=== PATIENT | male | born 1995 | race Caucasian/White ===

== ENCOUNTER 2017-06-21 | Emergency (ER) | payer OTHER ==
--- NOTE | 2017-06-21 22:48 | EDPHYS ---
Physician Documentation [facility] Name: Lawrence Parsons Age: 21 yrs Sex: Male : 1995 Arrival Date: 06/21/2017 Time: 21:51 Bed 27 Private MD: ED Physician Florin Matos HPI: 06/21 22:45 This 21 yrs old Male presents to ER via EMS with complaints of Anxiety. gs 22:45 The patient or guardian reports cough, that is intermittent. Onset: The gs symptoms/episode began/occurred 1 week(s) ago. Modifying factors: The symptoms are alleviated by nothing. the symptoms are aggravated by nothing. Associated signs and symptoms: Pertinent positives: nausea, Pertinent negatives: chest pain. Severity of symptoms: At their worst the symptoms were mild in the emergency department the symptoms are unchanged. The patient has experienced similar episodes in the past, a few times. Historical: - Allergies: 22:04 No Known Allergies; kb1 - Home Meds: 22:04 Seroquel Oral [Active]; Zoloft Oral [Active]; kb1 - PMHx: 22:04 Depression; Anxiety; kb1 - Immunization history:: Flu vaccine is not up to date. - Social history:: Smoking status: Patient uses tobacco products, denies chronic smoking, but will smoke occasionally. ROS: 22:45 All other systems are negative. gs Exam: 22:45 Head/Face: Normocephalic, atraumatic. Eyes: Pupils equal round and reactive to light, gs extra-ocular motions intact. Lids and lashes normal. Conjunctiva and sclera are non-icteric and not injected. Cornea within normal limits. Periorbital areas with no swelling, redness, or edema. Neck: Trachea midline, no thyromegaly or masses palpated, and no cervical lymphadenopathy. Supple, full range of motion without nuchal rigidity, or vertebral point tenderness. No Meningismus. Chest/axilla: Normal chest wall appearance and motion. Nontender with no deformity. No lesions are appreciated. Cardiovascular: Regular rate and rhythm with a normal S1 and S2. No gallops, murmurs, or rubs. Normal PMI, no JVD. No pulse deficits. Respiratory: Lungs have equal breath sounds bilaterally, clear to auscultation and percussion. No rales, rhonchi or wheezes noted. No increased work of breathing, no retractions or nasal flaring. Abdomen/GI: Soft, non-tender, with normal bowel sounds. No distension or tympany. No guarding or rebound. No evidence of tenderness throughout. Back: No spinal tenderness. No costovertebral tenderness. Full range of motion. Skin: Warm, dry with normal turgor. Normal color with no rashes, no lesions, and no evidence of cellulitis. MS/ Extremity: Pulses equal, no cyanosis. Neurovascular intact. Full, normal range of motion. Neuro: Awake and alert, GCS 15, oriented to person, place, time, and situation. Cranial nerves II-XII grossly intact. Motor strength 5/5 in all extremities. Sensory grossly intact. Cerebellar exam normal. Normal gait. 22:45 Constitutional: The patient appears alert, awake. 22:45 ENT: Posterior pharynx: erythema, that is mild. 22:45 Respiratory: Breath sounds: are clear throughout, stridor, is not appreciated. 22:48 Psych: Behavior/mood is anxious, says anxious because in custody. Patient has no thoughts/intents to harm self or others. Vital Signs: 22:04 BP 122 / 77; Pulse 105; Resp 18; Temp 98.4; Pulse Ox 98% ; Weight 72.57 kg; Height 5 kb1 ft. 8 in. (172.72 cm); Pain 5/10; 22:04 Body Mass Index 24.33 (72.57 kg, 172.72 cm) kb1 MDM: 22:44 Patient medically screened. 22:45 Data reviewed: vital signs, nurses notes. ED course: brought in by police for dui, was able to consume etoh without any emesis. will discharge stable. Administered Medications: No medications were administered Disposition: 06/21/17 22:47 Discharged to Home. Impression: Acute upper respiratory infection, unspecified. - Condition is Stable. - Discharge Instructions: Upper Respiratory Infection, Adult. - Medication Reconciliation Form, Thank You Letter, Antibiotic Education, Prescription Opioid Use form. - Follow up: Emergency Department; When: 2 - 3 days; Reason: Re-evaluation by your physician. Signatures: Florin Matos MD MD gs Brown, Kristina RN RN kb1
--- NOTE | 2017-06-21 22:48 | ER ---
Nurse's Notes [facility] Name: Lawrence Parsons Age: 21 yrs Sex: Male : 1995 Arrival Date: 06/21/2017 Time: 21:51 Bed 27 Private MD: Diagnosis: Acute upper respiratory infection, unspecified Presentation: 06/21 21:58 Presenting complaint: Patient states: complains of headache, hot/cold flashes, nausea kb1 for the past 4 days. States that today he has actually been able to drink some water. Transition of care: Prison. Onset of symptoms was June 17, 2017. Care prior to arrival: None. 21:58 Method Of Arrival: EMS kb1 21:58 Acuity: SANJUANA 4 kb1 Triage Assessment: 22:04 General: Appears in no apparent distress. Behavior is calm. Pain: Complains of pain in kb1 "headache". Neuro: Level of Consciousness is awake, alert, obeys commands, Oriented to person, place, time, situation. Cardiovascular: Patient's skin is warm and dry. Respiratory: Respiratory effort is even, unlabored, Respiratory pattern is regular, symmetrical. GI: Reports nausea. : No signs and/or symptoms were reported regarding the genitourinary system. Historical: - Allergies: 22:04 No Known Allergies; kb1 - Home Meds: 22:04 Seroquel Oral [Active]; Zoloft Oral [Active]; kb1 - PMHx: 22:04 Depression; Anxiety; kb1 - Immunization history:: Flu vaccine is not up to date. - Social history:: Smoking status: Patient uses tobacco products, denies chronic smoking, but will smoke occasionally. Screenin:06 Abuse screen: Denies threats or abuse. Nutritional screening: No deficits noted. kb1 Tuberculosis screening: No symptoms or risk factors identified. Fall Risk None identified. Assessment: 22:06 Reassessment: No changes from previously documented assessment. per officer Pt also kb needs a legal blood draw. Vital Signs: 22:04 BP 122 / 77; Pulse 105; Resp 18; Temp 98.4; Pulse Ox 98% ; Weight 72.57 kg; Height 5 kb1 ft. 8 in. (172.72 cm); Pain 5/10; 22:04 Body Mass Index 24.33 (72.57 kg, 172.72 cm) [facility] ED Course: 21:51 Patient arrived in ED. bb 21:53 Lyla Damon, RN is Primary Nurse. kb1 22:02 Florin Matos MD is Attending Physician. 22:03 Triage completed. kb1 22:04 Arm band placed on. kb1 22:06 Patient has correct armband on for positive identification. Bed in low position. Call kb1 light in reach. 22:06 No provider procedures requiring assistance completed. Patient did not have IV access kb1 during this emergency room visit. Administered Medications: No medications were administered Outcome: 22:47 Discharge ordered by . 22:52 Discharged to Law Enforcement kb1 22:52 Condition: stable 22:52 Discharge instructions given to patient, police, Instructed on discharge instructions, follow up and referral plans. Demonstrated understanding of instructions, follow-up care. 22:53 Patient left the ED. kb1 Signatures: Belinda Gutierrez RN RN Florin Matos MD MD Lyla Damon RN RN kb
== END 2017-06-21 22:53 | disposition home or self-care (01) ==
CPT/HCPCS: 99283

== ENCOUNTER → 2023-06-15 | Emergency (ER) | payer SELFPAY ==
[~2023-06-15] MED LIST: ACETAMINOPHEN 500 MG TAB ONE; NA CHLORIDE 0.9% 1,000 ML ONE; WATER FOR INJ,STERILE 10 ML ONE; ZIPRASIDONE MESYLA 20 MG/VIAL IM ONE
[2023-06-15 03:21] LABS: Barbiturates NEGATIVE (NEGATIVE); Benzodiazepines NEGATIVE (NEGATIVE); Cocaine NEGATIVE (NEGATIVE); METHAMPHETAM NEGATIVE (NEGATIVE); Methadone NEGATIVE (NEGATIVE); Opiates NEGATIVE (NEGATIVE); Phencyclidine NEGATIVE (NEGATIVE); THC Cannibis POSITIVE (NEGATIVE)
[2023-06-15 03:31] LABS: Absolute Basophils 0.2 K/uL (0-0.5); Absolute Lymphocytes (CBC) 1.9 K/uL (0.7-4.9); Absolute Monocytes 0.7 K/uL (0.1-1.3); Absolute Neutrophil 11.4 K/uL (1.8-8.0); Basophils % 1.3 % (0-1.3); Eosinophils % 0.2 % (0-4.4); Hematocrit 45.7 % (39.6-49.0); Lymphocytes % 13.4 % (15.3-44.8); MCH 30.7 pg (27.0-35.0); MCHC 35.1 g/dL (32.0-36.0); MCV 87.4 fL (80-100); MPV 7.1 fL (7.6-11.3); Monocytes % 4.8 % (3.3-12.3); Neutrophils % 80.3 % (41.7-73.7); Nucleated Red Blood Cells % 0.1 % (0-0); Platelets 466 thou/uL (152-406); RBC Red Blood Cell Count 5.23 M/uL (4.33-5.43); Red Cell Distribution Width 12.4 % (12.1-15.2)
[2023-06-15 03:39] LABS: PTT, Activated Partial Thromb 31.6 SECONDS (24.3-36.9); Protime INR 1.19
[2023-06-15 03:57] LABS: ALT/SGPT 33 U/L (16-61); AST/SGOT 25 U/L (15-37); Albumin/Globulin Ratio 0.9 (1.1-1.8); Alkaline Phosphatase 92 U/L (45-117); Anion Gap 14.6 mEq/L (5.0-15.0); BUN Blood Urea Nitrogen 11 mg/dL (7-18); Bicarbonate 21 mEq/L (21-32); Bilirubin Total 0.2 mg/dL (0.2-1.0); Globulin 4.6 g/dL (2.3-3.5); Glomerular Filtration Rate 78 ml/min (=/>90); Glucose Level 115 mg/dL (74-106); Potassium 3.6 mEq/L (3.5-5.1); Protein, Total 8.6 g/dL (6.4-8.2); Sodium Level 142 mEq/L (136-145)
[2023-06-15 04:01] LABS: Bilirubin Direct < 0.1 mg/dL (0-0.2); Bilirubin Indirect, Calculated ND mg/dL (0.2-0.8)
--- NOTE | 2023-06-15 12:04 | ER ---
Nurse's Notes [facility] Name: Lawrence Parsons Age: 27 yrs Sex: Male : 1995 Arrival Date: 06/15/2023 Time: 02:11 Bed 5 Private MD: Diagnosis: Suicidal ideations;Alcohol abuse Presentation: 06/14 02:27 Chief complaint: EMS states: we were called out for SI by PD. PD states patient had a vc1 piece of glass and was threatening to kill him self. Patient denies SI to us. 02:27 Coronavirus screen: At this time, the client does not indicate any symptoms associated vc1 with coronavirus-19. Ebola Screen: Patient negative for fever greater than or equal to 101.5 degrees Fahrenheit, and additional compatible Ebola Virus Disease symptoms Patient denies exposure to infectious person. Patient denies travel to an Ebola-affected area in the 21 days before illness onset. No symptoms or risks identified at this time. Initial Sepsis Screen: Does the patient meet any 2 criteria? HR > 90 bpm. No. Patient's initial sepsis screen is negative. Does the patient have a suspected source of infection? No. Patient's initial sepsis screen is negative. Risk Assessment: Do you want to hurt yourself or someone else? Patient reports no desire to harm self or others. Onset of symptoms was June 15, 2023. Care prior to arrival: None. Activity prior to arrival: None. Mechanism of Injury: No Mechanism of Injury. Transition of care: patient was not received from another setting of care. 02:27 Method Of Arrival: EMS: [facility] vc1 02:27 Acuity: SANJUANA 2 vc1 10:30 Risk Assessment: Do you want to hurt yourself or someone else? Patient reports no nj1 desire to harm self or others. Triage Assessment: 02:27 General: Appears in no apparent distress. comfortable, Behavior is cooperative, crying, vc1 restless, Smells of alcohol, Denies fever, feeling ill, fatigue, chills. Pain: Denies pain. EENT: No deficits noted. No signs and/or symptoms were reported regarding the EENT system. Neuro: Level of Consciousness is awake, alert, obeys commands, Oriented to person, place, time, situation, Appropriate for age. Cardiovascular: No deficits noted. Heart tones S1 S2 Capillary refill < 3 seconds Patient's skin is warm and dry. Rhythm is sinus tachycardia. Respiratory: Airway is patent Respiratory effort is even, unlabored, Respiratory pattern is regular, symmetrical, Breath sounds are clear bilaterally. GI: No deficits noted. No signs and/or symptoms were reported involving the gastrointestinal system. Abdomen is flat, non-distended, Abd is soft and non tender X 4 quads. : No deficits noted. No signs and/or symptoms were reported regarding the genitourinary system. Derm: old scars to right wrist, healed. Scratches to left arm, chin, chest. Musculoskeletal: No deficits noted. No signs and/or symptoms reported regarding the musculoskeletal system. Historical: - Allergies: : No Known Allergies; vc1 - Home Meds: : Seroquel 300 mg oral tablet 1 tab nightly [Active]; Lexapro 30 mg Oral daily [Active]; vc1 - PMHx: : Anxiety; Depression; vc1 - PSHx: : None; vc1 - Immunization history:: Client reports having NOT received the Covid vaccine. Flu vaccine is not up to date. - Social history:: Smoking status: Patient denies any tobacco usage or history of. Patient uses street drugs, marijuana, The patient is unemployed. - Family history:: not pertinent. - Code Status:: Full code. - Coronavirus screen:: The patient has NOT traveled to [place] in the past 14 days. The patient has NOT had contact with known/suspected case of Coronavirus?. - Ebola Screening: : Patient negative for fever greater than or equal to 101.5 degrees Fahrenheit, and additional compatible Ebola Virus Disease symptoms Patient denies exposure to infectious person Patient denies travel to an Ebola-affected area in the 21 days before illness onset No symptoms or risks identified at this time. Screenin:27 [facility] ED Fall Risk Assessment (Adult) History of falling in the last 3 months, vc1 including since admission No falls in past 3 months (0 pts) Confusion or Disorientation No (0 pts) Intoxicated or Sedated Yes (3 pts) Impaired Gait No (0 pts) Mobility Assist Device Used No (0 pt) Altered Elimination No (0 pt) Score/Fall Risk Level 3 or more points = High Risk Oriented to surroundings, Maintained a safe environment, Educated pt \\T\\ family on fall prevention, incl call for assistance when getting out of bed, Hourly rounding (assess needs \\T\\ fall precautionary measures) done, Utilized family, sitter, or virtual corporate investigator as indicated. Abuse screen: Denies threats or abuse. Nutritional screening: No deficits noted. Tuberculosis screening: No symptoms or risk factors identified. Assessment: 02:30 Reassessment: See triage assessment. vc1 05:44 Reassessment: Patient asleep, sitter at bedside. vc1 08:39 Reassessment: No changes from previously documented assessment. Patient and/or family ll1 updated on plan of care and expected duration. Pain level reassessed. Patient is alert, oriented x 3, equal unlabored respirations, skin warm/dry/pink. 10:30 Reassessment: Patient appears in no apparent distress at this time. Patient and/or nj1 family updated on plan of care and expected duration. Pain level reassessed. Patient is alert, oriented x 3, equal unlabored respirations, skin warm/dry/pink. 12:30 Reassessment: Patient appears in no apparent distress at this time. Resting/sleeping. nj1 Sitter at bedside. 12:50 Reassessment: [facility] on the phone, states they do not have a bed nj1 at this time but they have accepted the patient to come in Sunday since he has an LOLI and a chip mixer has to sign paperwork, and being the weekend he still wouldn't be able to come but until Sunday. Charge nurse notified. 14:30 Reassessment: Patient appears in no apparent distress at this time. Resting/sleeping. nj1 Psych: 02:27 [place] Suicide Severity Screening: In the past month, have you wished you were vc1 or wished you could go to sleep and not wake up? Patient responds "No." "In the past month, have you actually had any thoughts of killing yourself?" Patient responds "no." "In your lifetime, have you ever done anything, started to do anything, or prepared to do anything to end your life?" Patient responds "yes." Patient reports suicidal intent occurred greater than 3 months prior. In 2014 pt states he got drunk and took some pills and woke up in the hospital with lacerations on wrist Pt states he spent one day at [facility] in January and was released to follow up out patient. 02:27 Subjective: Patient's mood is sad, Delusions are denied, Hallucinations are denied vc1 Having thoughts of pt states he sometimes doesn't want to get out of bed and has had thoughts of wanting to , but doesn't actually want to and would not kill himself. Pt states he lost his job and hasn't been able to afford his Lexapro and Seroquel, pt states mother told him yesterday she would pay for him to restart his prescriptions. Objective: Patient is cooperative, Speech is soft, Affect is appropriate. Interventions: Removed personal items and placed in bag. Searched person for dangerous items. Urine collected and sent for urine drug test. Safety Checks: Personal items have been removed. Door is open. No visitors are present at this time. sitter at bedside. Patient uses marijuana. Commitment: Patient will be an involuntary commitment. Commitment papers completed. Vital Signs: 03:44 BP 106 / 74; Pulse 103; Resp 18; Temp 98.8; Pulse Ox 100% on R/A; vk 03:44 Weight 71.21 kg; Height 5 ft. 8 in. ; vc1 06:59 BP 119 / 68; Pulse 109; Resp 17; Temp 99.1; Pulse Ox 98% on R/A; vk 08:24 BP 147 / 54 LA Supine (auto/reg); Pulse 122 MON; Resp 12 S; Temp 97.8(TE); Pulse Ox 97% jg11 on R/A; 09:17 Pulse 97; jg11 12:41 BP 118 / 71 LA Supine (auto/reg); Pulse 85 MON; Resp 15 S; Temp 98.7(TE); Pulse Ox 98% jg11 on R/A; 15:56 BP 122 / 80 LA Supine (auto/reg); Pulse 80 MON; Resp 12 S; Temp 98.7(TE); Pulse Ox 98% jg11 on R/A; 03:44 Body Mass Index 23.87 (71.21 kg, 172.72 cm) vc1 Orient Coma Score: 04:41 Eye Response: spontaneous(4). Motor Response: obeys commands(6). Verbal Response: sp4 oriented(5). Total: 15. ED Course: 02:11 Safety checks: Items removed: yes. Door open/sign placed on door: yes. Family/friend ty present: no. Sitter present: Yes. Patient has correct armband on for positive identification. Placed in gown. Bed in low position. Valuables See valuables checklist. Sitter at bedside. 02:11 Safety checks: Items removed: yes. Door open/sign placed on door: yes. Sitter present: vk Yes. 02:27 Patient arrived in ED. ty 02:27 Arm band placed on right wrist. vc1 02:29 Shravan Guy MD is Attending Physician. sp4 02:53 Urine Drug Screen Sent. jw7 02:54 Urine collected: clean catch specimen, clear. ty 02:58 Assisted to bathroom. ty 03:00 Provided Education on: Geodon use . vc1 03:43 Inserted saline lock: 22 gauge in right antecubital area, using aseptic technique. vk 03:43 Patient maintains SpO2 saturation greater than 95% on room air. vk 04:09 Warm blanket given. Diet: Patient given snack. Patient given juice. Tolerated well ty [place] sandwich, mixed fruit cup, Brittnee Holly given to patient. 04:27 Assisted to bathroom. vk 04:29 Triage completed. vc1 04:45 Melody Macias RN is Primary Nurse. vc1 04:50 Initial lab(s) drawn, by me, sent to lab. vk 05:06 Warm blanket given. vk 05:31 EKG done, by polysomnograph tech. vk 06:54 Dressings: Kerlix X 2; left wrist left thumb non-adherent dressing. Wound care: to ty laceration located on left wrist and abraasion to left thumb was cleaned with with Hydrogen Peroxide, debrided using Gauze and Hydrogen Peroxide dressed with Neosporin, Kerlix, Patient tolerated well. 07:00 Report received from door opener RN. ll1 07:04 Attending Physician role handed off by Shravan Guy MD ec2 07:04 Skip Jones MD is Attending Physician. ec2 09:30 on phone with patients family, will contact [facility] for evaluation. mc5 09:35 Contacted [facility] to request evaluation. mc5 09:42 Side rails up X 1. PO fluids given. j1 09:52 Maday with [facility] called to notify of 45 min ETA. mc5 10:50 Maday with [facility] arrived and is at bedside. [facility] 12:10 faxed patient chart to [facility], [facility], [facility], [facility], [address] in request of placement. 12:44 PO fluids given. jg11 13:11 Patient accepted to [facility] by Dr. Bowles, admin approval by [facility] Kerrystuart Mueller for Sunday, June 18, 2023. 14:06 Kerrystuart Mueller with [facility] called back stating that they have a bed available [facility] now and he can be transported. 15:35 requested transport from [facility]- 45 min ETA. [facility] 15:40 [facility] called to adjust ETA to 1-1.5 hr. [facility] 16:17 PO fluids given. jg11 16:30 No provider procedures requiring assistance completed. nj1 16:30 IV discontinued, intact, bleeding controlled. nj1 Administered Medications: 03:20 Drug: Geodon IM 40 mg IM once Route: IM; Site: left gluteus; vc1 03:30 Drug: NS 0.9% IV 1000 ml IV at 1 bolus Per protocol; 1000 mL bolus Route: IV; Rate: 1 vc1 bolus; Site: right antecubital; 08:38 Drug: NS 0.9% IV 1000 ml IV at 1 bolus Per protocol; 1000 mL bolus Route: IV; Rate: 1 ll1 bolus; Site: right antecubital; 10:00 Follow up: IV Status: Completed infusion; IV Intake: 1000ml nj1 10:20 Drug: Acetaminophen PO 1000 mg PO once Route: PO; nj1 11:00 Follow up: Response: No adverse reaction; Pain is decreased nj1 Medication: 04:41 VIS not applicable for this client. vc1 Intake: 10:00 IV: 1000ml; Total: 1000ml. nj1 Outcome: 12:03 ER care complete, transfer ordered by . ec2 16:30 Transferred by ground EMS to other acute care facility: [facility]. Transfer form nj1 completed. Note: Latrecia \\T\\ 1250 16:30 Condition: stable nj1 16:30 Instructed on the need for transfer, 16:30 Patient left the ED. nj1 Signatures: Timmy Cardoso RN RN ll1 Melody Macias RN RN vc1 Sierra Mcrae, RN RN jw7 Shravan Guy MD MD sp4 Aster Winter RN RN nj1 Viviana Arita 5 Skip Jones MD MD ec2 Cecilio Morillo jg11 Radha Archer Tylor ty Corrections: (The following items were deleted from the chart) 04:09 04:08 Safety checks: Items removed: yes. Door open/sign placed on door: yes. Sitter vk present: Yes. vk 05:33 05:25 Diet: vk vk 16:48 16:40 Patient left the ED. nj1 nj1
--- NOTE | 2023-06-15 12:04 | EDPHYS ---
Physician Documentation [facility] Name: Lawrence Parsons Age: 27 yrs Sex: Male : 1995 Arrival Date: 06/15/2023 Time: 02:11 Bed 5 Private MD: ED Physician Skip Jones HPI: 06/14 02:57 This 27 yrs old Male presents to ER via Unassigned with complaints of Suicidal sp4 Ideation. 04:41 27-year-old male presents with EMS for intoxication associated with suicidal statements sp4 and several scratches to the left wrist, . 04:43 Patient denies suicidal ideation. sp4 Historical: - Allergies: 02:27 No Known Allergies; vc1 - Home Meds: 02:27 Seroquel 300 mg oral tablet 1 tab nightly [Active]; Lexapro 30 mg Oral daily [Active]; vc1 - PMHx: 02:27 Anxiety; Depression; vc1 - PSHx: 02:27 None; vc1 - Immunization history:: Client reports having NOT received the Covid vaccine. Flu vaccine is not up to date. - Social history:: Smoking status: Patient denies any tobacco usage or history of. Patient uses street drugs, marijuana, The patient is unemployed. - Family history:: not pertinent. - Code Status:: Full code. - Coronavirus screen:: The patient has NOT traveled to [place] in the past 14 days. The patient has NOT had contact with known/suspected case of Coronavirus?. - Ebola Screening: : Patient negative for fever greater than or equal to 101.5 degrees Fahrenheit, and additional compatible Ebola Virus Disease symptoms Patient denies exposure to infectious person Patient denies travel to an Ebola-affected area in the 21 days before illness onset No symptoms or risks identified at this time. ROS: 04:41 Constitutional: Negative for fever, chills, and weight loss, positive intoxication sp4 positive suicidal statements , positive self scratches to left wrist 04:41 All other systems are negative, Exam: 04:41 Constitutional: This is a well developed, well nourished patient who is awake, alert, sp4 and in no acute distress. Moderate intoxication Head/Face: Normocephalic, atraumatic. Eyes: Pupils equal round and reactive to light, extra-ocular motions intact. Lids and lashes normal. Conjunctiva and sclera are not injected. Cornea within normal limits. Periorbital areas with no swelling, redness, or edema. ENT: Nares patent. No nasal discharge, no septal abnormalities noted. Tympanic membranes are normal and external auditory canals are clear. Oropharynx with no redness, swelling, or masses, exudates, or evidence of obstruction, uvula midline. Mucous membranes moist. Neck: Trachea midline, no thyromegaly or masses palpated, and no cervical lymphadenopathy. Supple, full range of motion without nuchal rigidity, or vertebral point tenderness. Chest/axilla: Normal chest wall appearance and motion. Nontender with no deformity. No lesions are appreciated. Cardiovascular: Regular rate and rhythm with a normal S1 and S2. No gallops, murmurs, or rubs. Normal PMI, no JVD. No pulse deficits. Respiratory: Lungs have equal breath sounds bilaterally, clear to auscultation and percussion. No rales, rhonchi or wheezes noted. No increased work of breathing, no retractions or nasal flaring. Abdomen/GI: Soft, with normal bowel sounds. No distension or tympany. No guarding or rebound. No evidence of tenderness throughout. Back: No spinal tenderness. No costovertebral tenderness. Skin: Warm, dry with normal turgor. Normal color with no rashes, no lesions, and no evidence of cellulitis. MS/ Extremity: Pulses equal, no cyanosis. Neurovascular intact. Full, normal range of motion. Several abrasions to the left wrist Neuro: Awake and alert, GCS 15, oriented to person, place, time, and situation. Cranial nerves II-XII grossly intact. Motor strength 5/5 in all extremities. Sensory grossly intact. Psych: Awake, alert, with orientation to person, place and time. Behavior, mood, and affect are within normal limits 05:21 ECG was reviewed by the Attending Physician. EKG at 04:02 Sinus tachycardia at 108 sp4 Vital Signs: 03:44 BP 106 / 74; Pulse 103; Resp 18; Temp 98.8; Pulse Ox 100% on R/A; vk 03:44 Weight 71.21 kg; Height 5 ft. 8 in. ; vc1 06:59 BP 119 / 68; Pulse 109; Resp 17; Temp 99.1; Pulse Ox 98% on R/A; vk 08:24 BP 147 / 54 LA Supine (auto/reg); Pulse 122 MON; Resp 12 S; Temp 97.8(TE); Pulse Ox 97% jg11 on R/A; 09:17 Pulse 97; jg11 12:41 BP 118 / 71 LA Supine (auto/reg); Pulse 85 MON; Resp 15 S; Temp 98.7(TE); Pulse Ox 98% jg11 on R/A; 15:56 BP 122 / 80 LA Supine (auto/reg); Pulse 80 MON; Resp 12 S; Temp 98.7(TE); Pulse Ox 98% jg11 on R/A; 03:44 Body Mass Index 23.87 (71.21 kg, 172.72 cm) vc1 [place] Coma Score: 04:41 Eye Response: spontaneous(4). Motor Response: obeys commands(6). Verbal Response: sp4 oriented(5). Total: 15. MDM: 02:59 Patient medically screened. sp4 07:05 Data reviewed: vital signs. ec2 07:06 Differential diagnosis: drug withdrawal. acute psychotic break, depression, psychosis sp4 secondary to non-compliance. Transition of care: After a detail discussion of the patient's case, care is transferred to Skip Joens MD. 07:06 ED course: Patient signed out to me by previous physician, in brief patient clinically ec2 intoxicated had made some suicidal statements, plan is to let the patient clinically sober and reassess patient's suicidality. Potential DC to home with not suicidal statements when sober.. 08:32 ED course: On reassessment patient is awake and alert and answering questions ec2 appropriately. States that he does not remember the suicidal statements, denies any desire to harm himself or harm anyone else. Will have [facility] evaluate him.. 12:02 ED course: [place] [facility] w/ recommendation for inpatient admission. Will proceed with ec2 looking for placement. . 06/14 02:37 Order name: Acetaminophen; Complete Time: 05:22 vc1 06/14 02:37 Order name: Basic Metabolic Panel; Complete Time: 05:22 vc1 06/14 02:37 Order name: CBC with Diff; Complete Time: 05:22 vc1 06/14 02:37 Order name: ETOH Level; Complete Time: 06:21 vc1 06/14 02:37 Order name: Hepatic Function; Complete Time: 05:22 vc1 06/14 02:37 Order name: PT-INR; Complete Time: 05:22 vc1 06/14 02:37 Order name: Ptt, Activated; Complete Time: 05:22 vc1 06/14 02:37 Order name: Salicylate; Complete Time: 05:22 vc1 06/14 02:37 Order name: Urine Drug Screen; Complete Time: 05:22 vc1 06/14 02:37 Order name: EKG; Complete Time: 02:37 vc1 06/14 02:28 Order name: EKG - Nurse/Tech; Complete Time: 04:48 ty 06/14 02:28 Order name: IV Saline Lock; Complete Time: 04:48 ty 06/14 02:28 Order name: Labs collected and sent; Complete Time: 04:48 ty 06/14 02:28 Order name: Suicide Screening (Patrick); Complete Time: 04:48 ty 06/14 06:24 Order name: Wound Care: cleanse abrasions and apply dressing.; Complete Time: 07:04 sp4 EC:21 Rate is 108 beats/min. Rhythm is regular, Sinus tachycardia. QRS [place] is Normal. [place] sp4 interval is normal. QRS interval is normal. QT interval is normal. No Q waves. T waves are Normal. No ST changes noted. Clinical impression: No evidence of ischemia. Interpreted by me. Reviewed by me. Administered Medications: 03:20 Drug: Geodon IM 40 mg IM once Route: IM; Site: left gluteus; vc1 03:30 Drug: NS 0.9% IV 1000 ml IV at 1 bolus Per protocol; 1000 mL bolus Route: IV; Rate: 1 vc1 bolus; Site: right antecubital; 08:38 Drug: NS 0.9% IV 1000 ml IV at 1 bolus Per protocol; 1000 mL bolus Route: IV; Rate: 1 ll1 bolus; Site: right antecubital; 10:00 Follow up: IV Status: Completed infusion; IV Intake: 1000ml nj1 10:20 Drug: Acetaminophen PO 1000 mg PO once Route: PO; nj1 11:00 Follow up: Response: No adverse reaction; Pain is decreased nj1 Disposition Summary: 06/15/23 12:03 Transfer Ordered Notes: Transfer Location: [facility] ec2 Reason: Higher level of care ec2 Condition: Stable ec2 Problem: an ongoing problem ec2 Symptoms: are unchanged ec2 Accepting Physician: transferring doc(06/15/23 16:40) nj1 Diagnosis - Suicidal ideations ec2 - Alcohol abuse ec2 Discharge Instructions: - Discharge Summary Sheet mc5 Forms: - SBAR form mc5 - Medication Reconciliation Form ec2 Signatures: Dispatcher [employer] Timmy Blanton RN RN ll1 Melody Macias RN RN vc1 Shravan Guy MD MD sp4 Aster Winter RN RN nj1 Skip Jones MD MD ec2 Meño Prasad Corrections: (The following items were deleted from the chart) 12:02 08:32 ED course: On reassessment patient is awake and alert and answering questions ec2 appropriately. States that he does not remember the suicidal statements, denies any desire to harm himself or harm anyone else. Will discharge in the care of of responsible individual.. ec2 16:40 12:03 transferring doc ec2 nj1
--- NOTE | 2023-06-15 17:21 | EKG ---
Test Date: 2023-06-15 Test Time: 04:02:04 [employer] Worker: MAYELA MEASUREMENT RESULTS: Intervals: Rate: 108 WI: 124 QRSD: 86 QT: 346 QTc: 463 [place]: P: 31 WI: 124 QRS: 41 T: 18 INTERPRETIVE STATEMENTS: Sinus tachycardia Indeterminate axis Borderline ECG Compared to ECG 11/05/2014 17:17:17 Indeterminate axis now present Sinus rhythm no longer present Electronically Signed On 06-15-23 17:19:52 CDT by Manohar Nassar
[2023-06-15 18:12] VITALS: BP 122/80; TEMP 98.7; O2SAT 98
== END ==
LOC: ER 02:11
DX: R45.851 Suicidal ideations (principal); F10.10 Alcohol abuse, uncomplicated; F32.A Depression, unspecified; Z28.310 Unvaccinated for COVID-19
CPT/HCPCS: 36415; 80048; 80076; 80143; 80179; 80307; 82077; 85025; 85610; 85730; 93005; 96360; 96372; 99285; J3486; J7030